=== PATIENT | male | born 1980 | race Caucasian/White ===

== ENCOUNTER 2020-01-27 10:45 | Emergency (ER) | payer OTHER, SELFPAY ==
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
[2020-01-27 11:39] VITALS: BP 137/87; PULSE 71; RESP 18; TEMP 37.4; O2SAT 97
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
[2020-01-27 13:02] LABS: Anion Gap 9.9 mmol/L (7-16); Blood Urea Nitrogen 12 mg/dL (7-18); Calcium 9.1 mg/dL (8.5-10.1); Carbon Dioxide 28 mmol/L (21-32); Chloride 101 mmol/L (98-108); Estimated CRCL calculation 75 ml/min; Estimated Glomerular Filt Rate > 60; Glucose 95 mg/dL (70-99); Osmolality Calculated 279 mOsm/kg (285-295); Potassium 3.9 mmol/L (3.5-5.1); Sodium 135 mmol/L (136-145)
[2020-01-27 13:15] LABS: Amphetamine Screen Urine Negative (Negative); Barbiturate Screen Urine Negative (Negative); Benzodiazepines Screen Urine Negative (Negative); Cannabinoid Screen Urine Positive (Negative); Cocaine Screen Urine Negative (Negative); Methadone Screen Urine Negative (Negative); Opiate Screen Urine Negative (Negative); Phencyclidine Screen Urine Negative (Negative)
[2020-01-27 13:24] LABS: Ethanol < 3 mg/dL (0-6)
[2020-01-27 14:51] VITALS: BP 107/63; RESP 16; O2SAT 100
== END 2020-01-27 14:57 | disposition home or self-care (01) ==
PROVIDERS: Emergency Provider Family Medicine
DX: S29.012A Strain of muscle and tendon of back wall of thorax, initial encounter (principal); S16.1XXA Strain of muscle, fascia and tendon at neck level, initial encounter; S30.1XXA Contusion of abdominal wall, initial encounter; V49.88XA Car occupant (driver) (passenger) injured in other specified transport accidents, initial encounter
CPT/HCPCS: 36415; 70450; 71260; 72125; 74177; 80048; 80307; 99283; 99284; Q9965

== ENCOUNTER 2021-07-09 04:39 | Emergency (ER) | payer MEDICAID, SELFPAY ==
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
[2021-07-09 04:47] VITALS: BP 137/95; PULSE 88; RESP 18; TEMP 36.6; O2SAT 97
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
[2021-07-09] MEDS: TETANUS,DIPHTHERIA,AC PERTUSSIS ADULT 0.5 ML (ADACEL) IM (05:02)
[2021-07-09 05:24] LABS: Basophils Absolute Auto 0.08 K/mm3 (0.00-0.10); Basophils Percent Auto 0.7 % (0.0-1.0); Eosinophils Absolute Auto 0.31 K/mm3 (0.02-0.50); Eosinophils Percent Auto 2.9 % (1.0-6.0); Hematocrit 45.4 % (40.0-54.0); Hemoglobin 15.4 g/dL (14.0-18.0); Immature Granulocyte Absolute 0.05 K/mm3 (0.00-0.00); Immature Granulocyte Percent A 0.5 % (0.0-0.0); Lymphocytes Absolute Auto 2.77 K/mm3 (1.10-4.50); Lymphocytes Percent Auto 25.6 % (18.0-42.0); Mean Corpuscular HGB Conc 33.9 g/dL (32.0-36.0); Mean Corpuscular Hemoglobin 31.8 pg (27.0-31.0); Mean Corpuscular Volume 93.6 fL (78.0-102.0); Monocytes Absolute Auto 0.47 K/mm3 (0.10-0.90); Monocytes Percent Auto 4.4 % (2.0-11.0); Neutrophils Absolute Auto 7.1 K/mm3 (1.7-7.2); Neutrophils Percent Auto 65.9 % (50.0-70.0); Platelet Count Result 245 K/mm3 (150-420); Red Blood Count 4.85 M/mm3 (4.70-6.10); Red Cell Distribution Width 11.8 % (11.6-14.4); White Blood Count 10.8 K/mm3 (4.8-10.8)
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
[2021-07-09 05:28] LABS: Venous Carboxyhemoglobin 7.9 %THb (0-2.0)
[2021-07-09 05:37] LABS: Alanine Aminotransferase 32 U/L (16-63); Albumin Level 4.1 g/dL (3.4-5.0); Alkaline Phosphatase 102 U/L (46-116); Anion Gap 13 mmol/L (8-16); Aspartate Amino Transferase 11 U/L (15-37); Bilirubin,Total 0.2 mg/dL (0.00-1.00); Blood Urea Nitrogen 22 mg/dL (7-18); Calcium 8.4 mg/dL (8.5-10.1); Carbon Dioxide 24 mmol/L (21-32); Chloride 104 mmol/L (98-108); Estimated CRCL calculation 72 ml/min; Estimated Glomerular Filt Rate > 60; Glucose 124 mg/dL (70-99); Osmolality Calculated 296 mOsm/kg (285-295); Potassium 3.4 mmol/L (3.5-5.1); Sodium 141 mmol/L (136-145); Total Protein 7.8 g/dL (6.4-8.2)
[2021-07-09 05:42] LABS: Lactic Acid Reflex 1.4 mmol/L (0.4-2.0)
[2021-07-09 05:49] LABS: Amphetamine Screen Urine Negative (Negative); Barbiturate Screen Urine Negative (Negative); Benzodiazepines Screen Urine Negative (Negative); Cannabinoid Screen Urine Positive (Negative); Cocaine Screen Urine Negative (Negative); Methadone Screen Urine Negative (Negative); Opiate Screen Urine Negative (Negative); Phencyclidine Screen Urine Negative (Negative)
[2021-07-09] MEDS: LIDO 1%/EPINEPHRINE 1:100,000 20 ML VIAL INFILTRATE (05:56)
[2021-07-09] MEDS: LIDOCAINE HCL 1% LOCAL INJ 20 ML VIAL INFILTRATE (05:56)
[2021-07-09] MEDS: IPRATROPIUM 0.5 MG/ALBUTEROL SULFATE 2.5 MG AMPUL.NEB 3 ML INHALATION (06:26)
[2021-07-09] MEDS: HYDROcodone/acetaminophen (*CRX) 5-325 MG TABLET 1 TAB PO (06:31)
[2021-07-09] MEDS: NEOMYCIN/POLYMYXIN/BACITRACIN OINTMENT 15 GM TUBE 1 APPLIC TOPICAL (06:47)
[2021-07-09] MEDS: NEOMYCIN/POLYMYXIN/BACITRACIN OINTMENT PACKET 3 PACKET (06:47)
--- NOTE | 2021-07-09 06:48 | PC.NURSE ---
Patient's foot cleansed, Bacitracin placed, and wrapped. pulses present after wrapping. cap refill WNL.
--- NOTE | 2021-07-09 07:03 | PC.NURSE ---
ERP states that we will continue to monitor patient for respiratory distress for the next hour prior to discharge. Report given to PREMA Gonzales.
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
== END 2021-07-09 08:12 | disposition home or self-care (01) ==
PROVIDERS: Emergency Provider Emergency Medicine
DX: T59.811A Toxic effect of smoke, accidental (unintentional), initial encounter (principal); S91.311A Laceration without foreign body, right foot, initial encounter; S91.011A Laceration without foreign body, right ankle, initial encounter
CPT/HCPCS: 12002; 36415; 71046; 73630; 80053; 80307; 82375; 83605; 85025; 90471; 90715; 99283; 99284; A9270

== ENCOUNTER 2021-07-21 12:06 | Outpatient (CLI) | payer SELFPAY ==
[2021-07-21 12:31] LABS: Hematocrit 44.4 % (40.0-54.0); Hemoglobin 15.4 g/dL (14.0-18.0); Mean Corpuscular HGB Conc 34.7 g/dL (32.0-36.0); Mean Corpuscular Hemoglobin 32.2 pg (27.0-31.0); Mean Corpuscular Volume 92.9 fL (78.0-102.0); Platelet Count Result 328 K/mm3 (150-420); Red Blood Count 4.78 M/mm3 (4.70-6.10); Red Cell Distribution Width 11.4 % (11.6-14.4); White Blood Count 10.4 K/mm3 (4.8-10.8)
[2021-07-21 13:24] LABS: Alanine Aminotransferase 41 U/L (16-63); Albumin Level 4.5 g/dL (3.4-5.0); Alkaline Phosphatase 92 U/L (46-116); Anion Gap 13 mmol/L (8-16); Aspartate Amino Transferase 20 U/L (15-37); Bilirubin,Total 0.4 mg/dL (0.00-1.00); Blood Urea Nitrogen 17 mg/dL (7-18); Calcium 9.3 mg/dL (8.5-10.1); Carbon Dioxide 26 mmol/L (21-32); Chloride 100 mmol/L (98-108); Cholesterol 168 mg/dL (0-200); Estimated Glomerular Filt Rate > 60; Glucose 89 mg/dL (70-99); HDL Direct 32 mg/dL (40-60); LDL Cholesterol Calculated 117 mg/dL (<130); Osmolality Calculated 288 mOsm/kg (285-295); Potassium 3.9 mmol/L (3.5-5.1); Sodium 139 mmol/L (136-145); Total Protein 7.9 g/dL (6.4-8.2); Triglycerides 93 mg/dL (0-150)
== END 2021-07-21 12:07 | disposition home or self-care (01) ==
LOC: CHSLAB 12:07
PROVIDERS: PCP Family Medicine; Visit Provider Family Medicine
DX: Z72.0 Tobacco use (principal)
CPT/HCPCS: 36415; 80053; 80061; 85027